=== PATIENT | male | born 1955 | race Caucasian/White ===

== ENCOUNTER 2018-01-03 06:43 | Inpatient (IN) | payer OTHER ==
[~2018-01-03] VITALS: Ht 182.9 cm; Wt 125.0 kg
[2018-01-03 07:14] VITALS: BP 137/89
[2018-01-03] MEDS ORDERED: LACTATED RINGERS 1,000 ML IV SCH (07:17)
[2018-01-03] MEDS ORDERED: AMLO1TAB12 PO (08:08)
[2018-01-03] MEDS ORDERED: LEVO112T4 PO (08:08)
[2018-01-03] MEDS ORDERED: ESCI20TA PO (08:08)
[2018-01-03] MEDS ORDERED: VALS160T3 PO ×2 (08:08→08:13)
[2018-01-03] MEDS ORDERED: ESCI20TA10 PO (08:08)
[2018-01-03] MEDS ORDERED: DOCU100C33 PO (08:08)
[2018-01-03] MEDS ORDERED: AMLO10TA2 PO (08:13)
[2018-01-03] MEDS ORDERED: FENTANYL PF 250 MCG/5ML ONE (08:18)
[2018-01-03] MEDS ORDERED: MIDAZOLAM 1 MG/ML, 2ML ONE (08:18)
[2018-01-03] MEDS ORDERED: EPINEPHRINE 1 MG/ML, 1ML ONE (08:27)
[2018-01-03] MEDS ORDERED: BUPIVACAINE/PF 0.5% ONE (08:27)
[2018-01-03 08:43] LABS: ALANINE AMINOTRANSFERASE 33 U/L (12-78); ALBUMIN 3.9 g/dL (3.4-5.0); ANION GAP 3 mmol/L (5-15); CALCIUM 11.2 mg/dL (8.5-10.1); CHLORIDE 113 mmol/L (98-107)
[2018-01-03 08:45] LABS: ALKALINE PHOSPHATASE 65 U/L (45-117); BILIRUBIN,TOTAL 0.6 mg/dL (0.2-1.0); TOTAL PROTEIN 7.3 g/dL (6.4-8.2)
[2018-01-03] MEDS ORDERED: SUCCINYLCHOLINE 20 MG/ML, 10ML ONE (09:01)
[2018-01-03] MEDS ORDERED: PROPOFOL 10 MG/ML, 20ML ONE ×2 (09:01)
[2018-01-03] MEDS ORDERED: CEFAZOLIN 1,000 MG ONE ×2 (09:01)
[2018-01-03] MEDS ORDERED: GLYCOPYRROLATE 0.4 MG/2 ML, 2ML ONE (09:13)
[2018-01-03] MEDS ORDERED: BUPIVACAINE/PF-EPI 0.25% 1:200K IM ONE (09:16)
[2018-01-03] MEDS ORDERED: ONDANSETRON ODT 8 MG PO PRN (10:00)
[2018-01-03] MEDS ORDERED: MIDAZOLAM 1 MG/ML, 2ML IV PRN (10:00)
[2018-01-03] MEDS ORDERED: ACETAMINOPHEN 325 MG TABLET PO PRN ×2 (10:00→16:00)
[2018-01-03] MEDS ORDERED: EPHEDRINE 50 MG/ML, 1ML IVPush PRN (10:00)
[2018-01-03] MEDS ORDERED: MORPHINE SULFATE 4 MG/ML, 1ML IVPush PRN (10:00)
[2018-01-03] MEDS ORDERED: DIPHENHYDRAMINE 50 MG/ML, 1ML IVPush PRN (10:00)
[2018-01-03] MEDS ORDERED: OXYcodone 5 MG/5 ML ORAL.SOL UDC PO PRN (10:00)
[2018-01-03] MEDS ORDERED: PROMETHAZINE 25 MG SUPP PR PRN (10:00)
[2018-01-03] MEDS ORDERED: LABETALOL 5MG/ML, 20ML IV PRN (10:00)
[2018-01-03] MEDS ORDERED: EPHEDRINE 50 MG/ML, 1ML IM PRN (10:00)
[2018-01-03] MEDS ORDERED: PROMETHAZINE 25 MG/ML, 1ML IV PRN (10:00)
[2018-01-03 10:25] LABS: 10MIN %DROP IOPTH 77 %; 5MIN %DROP IOPTH 72 %; IOPTH BASELINE 444 pg/mL
[2018-01-03 10:26] LABS: SAMPLE 5 %DROP IOPTH 82 %
[2018-01-03] MEDS ORDERED: FENTANYL PF 100 MCG/2ML ONE ×2 (11:35→13:24)
[2018-01-03 11:41] LABS: SAMPLE 6 %DROP IOPTH 89 %
[2018-01-03] MEDS ORDERED: DEXAMETHASONE 4 MG/ML, 1ML ONE (11:56)
[2018-01-03] MEDS ORDERED: ALBUTEROL/IPRATROPIUM 2.5MG/0.5MG, 3 ML ONE (12:46)
[2018-01-03] MEDS ORDERED: ALBUTEROL SULFATE 2.5 MG/3 ML NPPB PRN (13:00)
[2018-01-03] MEDS ORDERED: OXYcodone 5 MG/5 ML ORAL.SOL UDC ONE (13:24)
[2018-01-03] MEDS ORDERED: ACETAMINOPHEN 650 MG/20.3 ML UDC ONE (13:24)
[2018-01-03] MEDS: FENTANYL PF 100 MCG/2ML IV PRN ×2 (13:35→13:55)
[2018-01-03 14:57] VITALS: BP 131/81
[2018-01-03] MEDS ORDERED: HYDROcodone/APAP 5/325 TABLET PO PRN (16:00)
[2018-01-03] MEDS ORDERED: ACETAMINOPHEN 650 MG SUPP PR PRN (16:00)
[2018-01-03 19:30] VITALS: BP 138/85
[2018-01-04 00:45] VITALS: BP 127/79
[2018-01-04 05:27] LABS: CALCIUM 9.5 mg/dL (8.5-10.1)
[2018-01-04 07:09] VITALS: BP 127/73
[2018-01-04] MEDS ORDERED: ACETAMINOPHEN 325 MG TABLET PO PRN (09:00)
[2018-01-04 09:05] VITALS: BP 150/84
[2018-01-04] MEDS ORDERED: HYDR-3240 PO (09:50)
== END 2018-01-04 10:08 | disposition home or self-care (01) | DRG 627 ==
LOC: OUT 06:43 → 4NOR 14:45 → OUT 14:55 → 4NOR 14:56 → DCLOUNGE 01-04 10:00
PROVIDERS: ADMIT Surgery; ATTEND Surgery
PROC: 4A11X4G Monitoring of Peripheral Nervous Electrical Activity, Intraoperative, External Approach (ICD-10-PCS; 2018-01-03)
PROC: 0GTR0ZZ Resection of Parathyroid Gland, Open Approach (ICD-10-PCS; principal; 2018-01-03 08:30)
DX: E21.0 Primary hyperparathyroidism (principal); D35.1 Benign neoplasm of parathyroid gland; I10 Essential (primary) hypertension; F32.9 Major depressive disorder, single episode, unspecified; E66.01 Morbid (severe) obesity due to excess calories; Z68.37 Body mass index [BMI] 37.0-37.9, adult; Z90.89 Acquired absence of other organs; Z80.0 Family history of malignant neoplasm of digestive organs; Z83.3 Family history of diabetes mellitus; Z82.49 Family history of ischemic heart disease and other diseases of the circulatory system
CPT/HCPCS: 36415; 80053; 82310; 83970; 88305; 88331; 93005; 94640; J0171; J0690; J1100; J2250; J2704; J3010; J3490; J7613; C1760; J0330; J7120

== ENCOUNTER → 2018-06-30 | Outpatient (CLI) | payer OTHER ==
[~2018-06-30] MED LIST: AMLO10TA6 PO; AMLO1TAB12 PO; DOCU100C33 PO; ESCI20TA PO; ESCI20TA10 PO; HYDR-3240 PO; LEVO112T4 PO; LEVO125T5 PO; VALS160T3 PO
[2018-06-30 13:33] LABS: BASOPHILS # (AUTO) 0.05 x10^3/uL (0-0.1); BASOPHILS % (AUTO) 1 % (0-1); EOSINOPHILS # (AUTO) 0.08 x10^3/uL (0-0.4); EOSINOPHILS % (AUTO) 1 % (1-7); LYMPHOCYTES # (AUTO) 2.12 x10^3/uL (1-3.4); LYMPHOCYTES % (AUTO) 33 % (22-44); MD NO; MEAN CORPUSCULAR HEMOGLOBIN 31.2 pg (27.5-34.5); MEAN CORPUSCULAR HGB CONC 34.7 g/dL (33.2-36.2); MEAN CORPUSCULAR VOLUME 89.8 fL (81-97); MEAN PLATELET VOLUME 7.9 fL (7.4-10.4); MONOCYTES # (AUTO) 0.48 x10^3/uL (0.2-0.8); MONOCYTES % (AUTO) 7 % (2-9); NEUTROPHILS # (AUTO) 3.75 x10^3/uL (1.8-6.8); NEUTROPHILS % (AUTO) 58 % (42-75); PLATELET COUNT 282 x10^3/uL (130-400); RED BLOOD COUNT 5.19 x10^6/uL (4.38-5.82); RED CELL DISTRIBUTION WIDTH 13.7 % (9.4-14.8)
[2018-06-30 13:43] LABS: ALBUMIN 4.5 g/dL (3.4-5.0); ANION GAP 9 mmol/L (5-15); CALCIUM 9.1 mg/dL (8.5-10.1); CHLORIDE 106 mmol/L (98-107); CHOLESTEROL, TOTAL 171 mg/dL (140-239); CREATININE 1.05 mg/dL (0.7-1.3); TRIGLYCERIDES 77 mg/dL (50-200); VLDL CHOLESTEROL 15 mg/dL (0-25)
[2018-06-30 14:00] LABS: % IRON SATURATION 19 % (20-55); ALANINE AMINOTRANSFERASE 36 U/L (12-78); ALKALINE PHOSPHATASE 59 U/L (45-117); BILIRUBIN,TOTAL 0.9 mg/dL (0.2-1.0); CHOL/HDL RATIO 3.2; HDL CHOL % 31 % (26-37); HDL CHOLESTEROL (DIRECT) 53 mg/dL (40-60); IRON LEVEL 56 mcg/dL (65-175); LDL CHOLESTEROL,CALCULATED 103 mg/dL (54-169); LDL/HDL RATIO 1.9 (0.5-3.0); PREALBUMIN 26.4 mg/dL (20.0-40.0); TOTAL IRON BINDING CAPACITY 300 mcg/dL (250-450); TOTAL PROTEIN 7.8 g/dL (6.4-8.2); TRANSFERRIN 220 mg/dL (200-360)
[2018-06-30 14:06] LABS: FOLATE LEVEL > 20.0 ng/mL (3.1-17.5)
== END | disposition home or self-care (01) ==
LOC: STAR 12:21
PROVIDERS: ATTEND Thoracic Surgery (Cardiothoracic Vascular Surgery)
DX: Z01.818 Encounter for other preprocedural examination (principal)
CPT/HCPCS: 36415; 71046; 80053; 80061; 82306; 82728; 82746; 83540; 83550; 83970; 84134; 84425; 84466; 85025; 93005

== ENCOUNTER 2018-07-06 07:20 | Inpatient (IN) | payer OTHER ==
[~2018-07-06] VITALS: Ht 182.9 cm; Wt 123.4 kg
[~2018-07-06 07:20] MED LIST changes: +BUPIVACAINE/PF-EPI 0.5% 1:200K ONE
[2018-07-06] MEDS ORDERED: LACTATED RINGERS 1,000 ML IV SCH (07:49)
[2018-07-06] MEDS ORDERED: SCOPOLAMINE PATCH, 1.5MG PATCH.TD72 TD STA (07:54)
[2018-07-06] MEDS ORDERED: ACETAMINOPHEN 1,000 MG/100 ML IV IVPB STA (07:54)
[2018-07-06] MEDS ORDERED: ACETAMINOPHEN 100 ML IVPB ONE (08:30)
[2018-07-06] MEDS ORDERED: FENTANYL PF 250 MCG/5ML ONE (10:11)
[2018-07-06] MEDS ORDERED: MIDAZOLAM 1 MG/ML, 2ML ONE (10:11)
[2018-07-06] MEDS ORDERED: CEFAZOLIN 1,000 MG ONE (10:12)
[2018-07-06] MEDS ORDERED: SUCCINYLCHOLINE 20 MG/ML, 10ML ONE (10:12)
[2018-07-06] MEDS ORDERED: ONDANSETRON 2MG/ML, 2ML ONE ×2 (10:12)
[2018-07-06] MEDS ORDERED: ROCURONIUM 10MG/ML,5ML ONE (10:12)
[2018-07-06] MEDS ORDERED: DEXAMETHASONE 4 MG/ML, 1ML ONE ×2 (10:12)
[2018-07-06] MEDS ORDERED: EPHEDRINE 50 MG/ML, 1ML ONE (10:33)
[2018-07-06] MEDS ORDERED: PROPOFOL 10 MG/ML, 20ML ONE (10:33)
[2018-07-06] MEDS ORDERED: SUGAMMADEX 200 MG/2 ML IVPush ONE (11:06)
[2018-07-06] MEDS ORDERED: OXYcodone 5 MG/5 ML ORAL.SOL UDC PO PRN (11:30)
[2018-07-06] MEDS ORDERED: MIDAZOLAM 1 MG/ML, 2ML IV PRN (11:30)
[2018-07-06] MEDS ORDERED: MEPERIDINE/PF 25MG/0.5ML IVPush PRN (11:30)
[2018-07-06] MEDS ORDERED: PROMETHAZINE 12.5 MG SUPP PR PRN ×2 (11:30→12:30)
[2018-07-06] MEDS ORDERED: LABETALOL 5MG/ML, 20ML IV PRN (11:30)
[2018-07-06] MEDS ORDERED: ONDANSETRON ODT 8 MG PO PRN (11:30)
[2018-07-06] MEDS ORDERED: EPHEDRINE 50 MG/ML, 1ML IVPush PRN (11:30)
[2018-07-06] MEDS ORDERED: HALOPERIDOL 5 MG/ML IV PRN (11:30)
[2018-07-06] MEDS ORDERED: MORPHINE SULFATE 4 MG/ML, 1ML IVPush PRN (11:30)
[2018-07-06] MEDS ORDERED: DIAZEPAM 5 MG/ML, 2ML IVPush PRN (11:30)
[2018-07-06] MEDS ORDERED: hydrALAzine 20 MG/ML, 1ML IV PRN (11:30)
[2018-07-06] MEDS ORDERED: ALBUTEROL SULFATE 2.5 MG/3 ML NPPB PRN (11:30)
[2018-07-06] MEDS ORDERED: PROMETHAZINE 25 MG/ML, 1ML IV PRN (11:30)
[2018-07-06] MEDS ORDERED: ONDANSETRON 2MG/ML, 2ML IV PRN (11:30)
[2018-07-06] MEDS ORDERED: OXYcodone 5 MG/5 ML ORAL.SOL UDC ONE (12:11)
[2018-07-06] MEDS ORDERED: FENTANYL PF 100 MCG/2ML ONE (12:11)
[2018-07-06] MEDS: FENTANYL PF 100 MCG/2ML IV PRN ×2 (12:15→12:20)
[2018-07-06] MEDS ORDERED: HYDROmorphone 2 MG/ML, 1ML ONE (12:22)
[2018-07-06] MEDS: HYDROmorphone 2 MG/ML, 1ML IVPush PRN ×2 (12:24→12:30)
[2018-07-06] MEDS ORDERED: PROMETHAZINE 25 MG/ML, 1ML IM PRN (12:30)
[2018-07-06] MEDS ORDERED: ONDANSETRON 2MG/ML, 2ML IVPush PRN (12:30)
[2018-07-06] MEDS ORDERED: ENALAPRILAT 1.25 MG/ML, 2ML IV PRN (12:30)
[2018-07-06] MEDS ORDERED: DIPHENHYDRAMINE 50 MG/ML, 1ML IV PRN (12:30)
[2018-07-06] MEDS ORDERED: LORazepam 2 MG/ML, 1ML IV PRN (12:30)
[2018-07-06] MEDS ORDERED: PHENOL THROAT SPRAY BOTTLE MM PRN (12:30)
[2018-07-06] MEDS ORDERED: hydrALAzine 20 MG/ML, 1ML IVPush PRN (12:30)
[2018-07-06 20:00] VITALS: BP 131/74
[2018-07-06] MEDS: LACTATED RINGERS 1,000 ML IV SCH (20:05)
[2018-07-06] MEDS: FAMOTIDINE 20 MG/2 ML IVPush SCH (21:14)
[2018-07-06] MEDS: HYDROcodone/APAP 7.5-325MG/15ML UDC PO PRN (22:06)
[2018-07-07] VITALS: BP 103/64
[2018-07-07] MEDS ORDERED: LACTATED RINGERS 1,000 ML IV SCH (01:17)
[2018-07-07] MEDS: LACTATED RINGERS 1,000 ML IV SCH (02:20)
[2018-07-07 04:00] VITALS: BP 122/71
[2018-07-07 05:54] LABS: BASOPHILS # (AUTO) 0.01 x10^3/uL (0-0.1); BASOPHILS % (AUTO) 0 % (0-1); EOSINOPHILS % (AUTO) 0 % (1-7); LYMPHOCYTES # (AUTO) 0.83 x10^3/uL (1-3.4); LYMPHOCYTES % (AUTO) 9 % (22-44); MD NO; MEAN CORPUSCULAR HEMOGLOBIN 30.7 pg (27.5-34.5); MEAN CORPUSCULAR VOLUME 90.3 fL (81-97); MEAN PLATELET VOLUME 8.5 fL (7.4-10.4); MONOCYTES # (AUTO) 0.63 x10^3/uL (0.2-0.8); MONOCYTES % (AUTO) 7 % (2-9); NEUTROPHILS # (AUTO) 7.91 x10^3/uL (1.8-6.8); NEUTROPHILS % (AUTO) 84 % (42-75); PLATELET COUNT 229 x10^3/uL (130-400); RED BLOOD COUNT 4.57 x10^6/uL (4.38-5.82); RED CELL DISTRIBUTION WIDTH 13.6 % (9.4-14.8)
[2018-07-07 06:05] LABS: CHLORIDE 107 mmol/L (98-107)
[2018-07-07 06:26] LABS: ALBUMIN 3.7 g/dL (3.4-5.0); ANION GAP 8 mmol/L (5-15); CALCIUM 8.5 mg/dL (8.5-10.1); CREATININE 0.91 mg/dL (0.7-1.3)
[2018-07-07] MEDS: FAMOTIDINE 20 MG/2 ML IVPush SCH (08:38)
[2018-07-07] MEDS: HYDROcodone/APAP 7.5-325MG/15ML UDC PO PRN ×2 (08:38→12:47)
[2018-07-07 09:15] VITALS: BP 136/76
[2018-07-07] MEDS ORDERED: HYDR473S47 PO (13:21)
== END 2018-07-07 13:30 | disposition home or self-care (01) | DRG 621 ==
LOC: ORIP 07:20 → 4NOR 13:06 → DCLOUNGE 07-07 13:18
PROVIDERS: ADMIT Thoracic Surgery (Cardiothoracic Vascular Surgery); ATTEND Thoracic Surgery (Cardiothoracic Vascular Surgery)
PROC: 0DP64CZ Removal of Extraluminal Device from Stomach, Percutaneous Endoscopic Approach (ICD-10-PCS; 2018-07-06)
PROC: 0DB64Z3 Excision of Stomach, Percutaneous Endoscopic Approach, Vertical (ICD-10-PCS; principal; 2018-07-06 10:00)
DX: E66.01 Morbid (severe) obesity due to excess calories (principal); E03.9 Hypothyroidism, unspecified; I10 Essential (primary) hypertension; Z68.36 Body mass index [BMI] 36.0-36.9, adult; F32.9 Major depressive disorder, single episode, unspecified
CPT/HCPCS: 36415; J3490; 80048; 82040; 85025; G0378; J0131; J0690; J1100; J1170; J2250; J2405; J2704; J3010; J0330; J7120